=== PATIENT | male | born 1955 | race Caucasian/White ===

== ENCOUNTER 2017-06-24 20:20 | Emergency (ER) | payer BC ==
--- NOTE | 2017-06-24 21:22 | EDM.PDOC ---
ED HPI GENERAL MEDICAL PROBLEM - General Chief Complaint: Lower Extremity Injury/Pain Stated Complaint: FELL AND INJURED THE RIGHT KNEE Time Seen by Provider: 06/24/17 21:11 Source of Information: Reports: Patient History Limitations: Reports: No Limitations - History of Present Illness INITIAL COMMENTS - FREE TEXT/NARRATIVE: 61 years old male patient presented with chief complaint of left knee pain. Patient twisted his knee 2 hours ago. He fell down and his left knee. Denies any head injury. No loss of consciousness. Denies any back pain or neck pain. No abdominal pain. Denies any chest pain or shortness breath. No injury anywhere else. Complaining of pain and swelling in his left knee. Pain is worse with any weightbearing. Or any activities. - Related Data Allergies Allergy/AdvReac Type Severity Reaction Status Date / Time No Known Allergies Allergy Verified 06/24/17 21:02 Home Meds: Home Meds NK [No Known Home Meds] 06/24/17 [History] Past Medical History Musculoskeletal History: Reports: Muscular Dystrophy, Other (See Below) Other Musculoskeletal History: isai rico Neurological History: Reports: Neuropathy, Peripheral Social & Family History - Tobacco Use Smoking Status *Q: Never Smoker Review of Systems - Review of Systems Review Of Systems: ROS reveals no pertinent complaints other than HPI. ED EXAM, GENERAL - Physical Exam Exam: See Below Exam Limited By: No Limitations General Appearance: Alert, WD/WN, No Apparent Distress Head: Atraumatic, Normocephalic Neck: Normal Inspection, Supple, Non-Tender, Full Range of Motion Respiratory/Chest: No Respiratory Distress, Lungs Clear, Normal Breath Sounds, No Accessory Muscle Use, Chest Non-Tender Cardiovascular: Normal Peripheral Pulses, Regular Rate, Rhythm, No Edema, No Gallop, No JVD, No Murmur, No Rub GI/Abdominal: Normal Bowel Sounds, Soft, Non-Tender, No Organomegaly, No Distention, No Abnormal Bruit, No Mass Extremities: No Pedal Edema, Joint Swelling, Limited Range of Motion, Other ( Negative varus test negative Valgus. Negative Pattie test. Negative anterior and posterior drawer test. CMS intact. Mild swelling. No erythema.). No: Normal Range of Motion, Redness Neurological: Alert, Oriented, CN II-XII Intact, Normal Cognition, Normal Gait, Normal Reflexes, No Motor/Sensory Deficits Skin Exam: Warm, Dry, Intact, Normal Color, No Rash Course - Vital Signs Last Recorded V/S: Last Vital Signs Temp 36.4 C 06/24/17 21:29 Pulse 74 06/24/17 21:29 Resp 16 06/24/17 21:29 BP 145/100 H 06/24/17 21:29 Pulse Ox 96 06/24/17 21:29 - Orders/Labs/Meds Orders: Active Orders 24 hr Category Date Time Status Knee 3V Lt [CR] Stat Exams 06/24/17 21:18 Taken - Re-Assessments/Exams Free Text/Narrative Re-Assessment/Exam: 06/24/17 21:22 Patient was seen and examined shortly after arrival. Refused pain medication. 06/24/17 22:54X-ray did not show any acute injuries. Most likely MCL sprain. Patient was advised to use ice, compression, elevation, weightbearing as tolerated. Tylenol and ibuprofen for discomfort. Follow-up with orthopedic as a next couple days. Come back symptom worsen. Knee brace. MRI if not improving in the next 2 weeks. Patient refused crutches. Patient agrees with the plan. Stable for discharge. Departure - Departure Time of Disposition: 22:57 Disposition: Home, Self-Care 01 Condition: Good Clinical Impression: Grade 1 injury of medial collateral ligament of left knee - Discharge Information Referrals: PCP,None [Primary Care Provider] - Forms: ED Department Discharge Additional Instructions: Patient was advised to use ice, compression, elevation, weightbearing as tolerated. Tylenol and ibuprofen for discomfort. Follow-up with orthopedic as a next couple days. Come back symptom worsen. Knee brace. MRI if not improving in the next 2 weeks. - My Orders Last 24 Hours: My Active Orders 06/24/17 21:18 Knee 3V Lt [CR] Stat - Assessment/Plan Last 24 Hours: My Active Orders 06/24/17 21:18 Knee 3V Lt [CR] Stat Plan: Patient was advised to use ice, compression, elevation, weightbearing as tolerated. Tylenol and ibuprofen for discomfort. Follow-up with orthopedic as a next couple days. Come back symptom worsen. Knee brace. MRI if not improving in the next 2 weeks.
--- NOTE | 2017-06-26 11:10 | CR ---
Knee 3V Lt INDICATION: injury FINDINGS: Slight hypertrophic change patellofemoral compartment. Tiny left knee effusion or synovitis . Exam otherwise negative.
== END 2017-06-24 23:22 | disposition home or self-care (01) ==
LOC: JP.ED 20:20
DX: S86.902A Unspecified injury of unspecified muscle(s) and tendon(s) at lower leg level, left leg, initial encounter (principal); X50.1XXA Overexertion from prolonged static or awkward postures, initial encounter
CPT/HCPCS: 73562-26-LT; 73562-LT; 99284